=== PATIENT | female | born 1950 | race Caucasian/White ===

== ENCOUNTER → 2025-09-03 07:38 | Outpatient (REF) | payer MEDICARE, OTHER, SELFPAY ==
[2025-09-03 09:00] LABS: Hematocrit 37.3 % (37.0-47.0); Hemoglobin 12.0 g/dL (12.0-16.0); Mean Corp Hgb Conc. 32.2 g/dL (33.0-37.0); Mean Corpuscular Volume 94.7 fL (81.0-99.0); Nucleated Red Blood Cells % 0 %; Platelet Count 276 10^3/uL (130-400); Red Cell Dist. Width 12.9 % (11.5-14.5)
[2025-09-03 09:16] LABS: ALT (SGPT) 14 U/L (0-35); AST (SGOT) 19 U/L (14-36); Albumin 4.4 g/dl (3.5-5.0); Alkaline Phosphatase 57 U/L (38-126); Blood Urea Nitrogen 21 mg/dl (7-17); Calcium 9.9 mg/dl (8.4-10.2); Carbon Dioxide 30 mmol/L (22-30); Chloride 105 mmol/L (98-107); Glucose 102 mg/dl (70-99); Potassium 5.0 mmol/L (3.5-5.1); Sodium 140 mmol/L (135-145); Total Protein 7.3 g/dl (6.3-8.2); Very Low Density Lipoprotein 11 mg/dl (0-30); eGFR 58.02
[2025-09-03 09:29] LABS: Vitamin D, 25-OH*** 23.6 ng/mL (30-80)
[2025-09-03 09:30] LABS: HDL Cholesterol 116 mg/dl; LDL Cholesterol, Calculated 122 mg/dl
[2025-09-03 09:42] LABS: TSH 1.97 uIU/ml (0.47-4.68)
== END ==
LOC: REG 07:38
PROVIDERS: ATTENDING PHYSICIAN Nurse Practitioner
DX: I10 Essential (primary) hypertension (principal); E03.9 Hypothyroidism, unspecified; E78.5 Hyperlipidemia, unspecified; E55.9 Vitamin D deficiency, unspecified
CPT/HCPCS: 36415; 80053; 80061; 82306; 84443; 85025